=== PATIENT | male | born 1985 | race Caucasian/White ===

== ENCOUNTER → 2018-08-03 08:30 | Outpatient (CLI) | payer BC, SELFPAY ==
--- NOTE | 2018-08-03 08:52 | US_ITS ---
US abdomen complete HISTORY: ITS.REASON: ABD PAIN, WGT LOSS, FATIGUE ORDERING PHYSICIAN: Marissa Bai APRN PATIENT AGE: 33 years COMPARISON: None FINDINGS: PANCREAS:Unremarkable. No obvious mass or abnormal fluid collection. No ductal dilatation LIVER:No focal liver lesions demonstrated. Homogeneous echogenicity. No intrahepatic biliary ductal dilatation evident RIGHT KIDNEY:Unremarkable. Normal size and echogenicity. No hydronephrosis LEFT KIDNEY:Unremarkable. No hydronephrosis. Normal size and echogenicity. GALLBLADDER:No gallstones, gallbladder wall thickening, pericholecystic fluid, or biliary dilatation. There are low level echoes within the gallbladder suggesting sludge or precipitated bile AORTA:No evidence of aneurysmal dilatation. SPLEEN:Unremarkable. Normal size and echogenicity ASCITES:None demonstrated. IMPRESSION: No acute finding. No gallstones apparent. Small amount of sludge/precipitated bile noted in the gallbladder
== END ==
PROVIDERS: PCP Nurse Practitioner; Referring Provider Nurse Practitioner; Visit Provider Nurse Practitioner
DX: R10.84 Generalized abdominal pain (principal); R53.83 Other fatigue; R63.4 Abnormal weight loss
CPT/HCPCS: 76700

== ENCOUNTER → 2018-08-26 10:19 | Outpatient (CLI) | payer BC, SELFPAY ==
--- NOTE | 2018-08-26 10:30 | NM_ITS ---
NM hepatobiliary wo pharm HISTORY: Abdominal pain, weight loss ITS.REASON: RUQ PAIN ORDERING PHYSICIAN: Marissa Bai APRN PATIENT AGE: 33 years COMPARISON: None DOSE: 7.93 mci tc choletec 1.45 mcg cck inj into lt ant. FINDINGS: Homogeneous activity is present within the hepatic parenchyma. Activity is present in the gallbladder by 45 minutes. Activity is present in the small bowel by 30 minutes. The gallbladder ejection fraction is calculated to be 51% The patient did not report pain or other symptoms during CCK infusion. IMPRESSION: Unremarkable hepatobiliary scan and gallbladder ejection fraction. No evidence of common or cystic duct obstruction with normal gallbladder ejection fraction
== END ==
PROVIDERS: PCP Nurse Practitioner; Visit Provider Nurse Practitioner
DX: K82.8 Other specified diseases of gallbladder (principal)
CPT/HCPCS: 78226; A9537; J2805

== ENCOUNTER → 2020-02-23 10:37 | Outpatient (CLI) | payer SELFPAY | PROVIDERS: Visit Provider Nurse Practitioner Family | DX: Z02.4 Encounter for examination for driving license (principal) ==

== ENCOUNTER → 2020-08-24 13:25 | Outpatient (CLI) | payer OTHER, SELFPAY ==
[2020-08-24 13:28] LABS: Microscopic, Urine URINE MICROSCOPIC (MICROSCOPIC)
[2020-08-24 13:51] LABS: Basophils % 0.3 % (0.1-2.0); Eosinophils # 0.2 K/mm3 (0.0-0.4); Eosinophils % 3.6 % (0.1-12.0); Hematocrit 39.6 % (42.0-52.0); Hemoglobin 13.4 g/dL (14.1-18.0); Lymphocytes # 1.8 K/mm3 (0.7-4.5); Lymphocytes % 32.5 % (10-50); Mean Corpuscular HGB Conc 33.9 g/dL (31.8-35.4); Mean Corpuscular Hemoglobin 29.5 pg (27.0-31.2); Mean Corpuscular Volume 87.1 fl (80-94); Mean Platelet Volume 7.5 fl (7.4-10.4); Monocytes # 0.3 K/mm3 (0.1-1.0); Monocytes % 5.3 % (1.7-9.3); Neutrophils # 3.3 K/mm3 (1.8-7.8); Neutrophils % 58.3 % (37.0-80.0); Platelet Count 304 K/mm3 (142-424); Red Blood Count 4.55 M/mm3 (4.60-6.20); Red Cell Distribution Width 13.1 % (11.5-17.5); White Blood Count 5.7 K/mm3 (4.8-10.8)
[2020-08-24 13:59] LABS: Appearance,Urine CLEAR (Clear); Bilirubin,Urine Negative (Negative); Blood, Urine Negative (Negative); Color,Urine YELLOW (Yellow); Glucose,Urine (UA) Negative (Negative); Ketones,Urine TRACE (Negative); Leukocyte Esterase,Urine Negative (Negative); Nitrate,Urine Negative (Negative); PH,Urine 5.5 (5.0-8.5); Protein,Urine Negative (Negative); Specific Gravity, Urine >= 1.030 (1.005-1.030); Urobilinogen,Urine 0.2 EU/dl (0.2)
[2020-08-24 14:16] LABS: Squamous Epithelial Cell,Urine Occasional #/hpf (0-5)
[2020-08-24 14:19] LABS: Anion Gap 9.2 mEq/L (5-15); Blood Urea Nitrogen 19 mg/dl (9-20); Calcium 9.1 mg/dl (8.4-10.2); Carbon Dioxide 28 mmol/L (22.0-30.0); Chloride 106 mmol/L (98-107); Estimated Glomerular Filt Rate 95 ml/min (>60); GFR (African American) 115 ML/MIN (>60); Glucose 122 mg/dl (74-100); Potassium 4.2 mmoL/L (3.5-5.1); Sodium 139 mmol/L (136-145)
== END ==
PROVIDERS: Visit Provider Surgery
DX: Z01.812 Encounter for preprocedural laboratory examination (principal); Z11.52 Encounter for screening for COVID-19; K40.90 Unilateral inguinal hernia, without obstruction or gangrene, not specified as recurrent
CPT/HCPCS: 36415; 80048; 81001; 85025; U0003

== ENCOUNTER 2020-08-25 06:59 | Day surgery (SDC) | payer OTHER, SELFPAY ==
[2020-08-24 10:19] VITALS: BMI 24.0
[2020-08-25] VITALS (11 sets, daily range): BP systolic 116–140; BP diastolic 64–87; PULSE 53–93; RESP 16–60; TEMP 36.2–36.6; O2SAT 98–100
--- NOTE | 2020-08-25 08:25 | P.PN_ITS ---
[facility] Anesthesia Checklist - Patient Identification Patient Identification: Arm Band - Structural Data Admitted From: Home Planned Operative Procedure/s: Open right inguinal hernia repair Consent for Planned Operative Procedure(s) Verified: Yes Verified Documents: Surgical Consent, History and Physical - NPO Status Verified Time NPO: 00:00 - Additional verifications Anesthesia Reactions: No Hx Blood Transfusions: No Blood Transfusion Reaction: No - Airway Assessment C-Spine Mobility Assessed: Yes TMJ Mobility Assessed: Yes Dentition: Good Dentition - Neurological Assessment Level of Consciousness: Awake, Alert - Anesthesia Plan Anesthesia Risk discussed: Yes Anesthesia Plan: Verified ASA Class: II Anesthesia Type: General [facility] History Medical History: Denies:: Cancer, Diabetes Mellitus Type 1, Diabetes Mellitus Type 2, Internal Pacemaker, MRSA, Seizures *Have you ever received a pneumonia vaccine?: No *Have you received a flu vaccine this season?: No Other Medical History: Denies: Blood Transfusion Reaction Anesthesia experience/problems:: NAC Other Surgeries: Yes: No Previous Surgery. No: Pacemaker Amputation: No - *Social History Last grade of school completed: 11th or 12th Smoking Status: Current every day smoker Tobacco Type: cigarettes # Packs/Day (cigarettes): 1 Alcohol Intake: never Substance Use Type: former substance user *Occupational Status:: employed Housing: house Household Members: spouse *Travel in the last 8 weeks: None Family Hx:: No significant family history
--- NOTE | 2020-08-25 10:09 | P.OP_ITS ---
Date of procedure: 08/25/20 Pre-op Diagnosis:: Right inguinal hernia Post-op Diagnosis:: Same Procedure performed:: Open right inguinal hernia repair Surgeon:: Tony Ramesh MD Anesthesia: GETDon Estimated blood loss (mL): 15 Operative findings:: Complex chronic indirect hernia Operative note:: After informed consent was obtained the patient was taken to the operating room and placed in the supine position. General anesthesia was induced and his abdomen/groin/scrotum was prepped and draped in a sterile fashion. After infiltration with local anesthetic an oblique right groin incision was made. The deep subcutaneous tissue was dissected with electrocautery through Laurent's fascia to the level of the external aponeurosis. The external aponeurosis was sharply opened with Metzenbaum scissors to the level of the external ring. The contents of the canal were carefully elevated. Careful dissection was utilized to free the hernia sac from surrounding tissue. Significant scarring (chronic changes) were noted in this region. The hernia sac was freed from surrounding tissue. The distal margin was opened to facilitate dissection. Once dissection was complete the hernia sac was closed with running Vicryl suture. An extra- large PerFix plug was placed within the defect and secured with interrupted Ethibond. The PerFix overlay was then secured to the shelving edge inferiorly and fascial margin superiorly with interrupted Ethibond. The external aponeurosis was reapproximated with interrupted Vicryl. Laurent's fascia was closed in a similar manner. Skin was then reapproximated with running 3-0 Stratafix. Dressings were applied and the patient's anesthetic agents were reversed. He was extubated prior to transfer to recovery. Condition: stable Disposition: PACU Specimens:: None Complications:: No immediate
--- NOTE | 2020-08-25 10:21 | HMH.ANESI ---
[facility] Anesthesia Record Part I Intake, IV Amount: 1,000 Estimated blood loss (mL): 15 Urine output (mL): 500 Blood Pressure: 131/87 SaO2: 98 Pulse Rate: 93 Respiratory Rate: 20 Temperature: 97.1 F Patient is:: Drowsy, Oral/Nasal airway Stable to PACU at:: 10:28
--- NOTE | 2020-08-25 13:17 | HMH.ANESII ---
[facility] Anesthesia Record Part II Discharge Time: 10:47 Destination: Surgical Day Care (OP Surgery) PACU nurse assessment reviewed?: Yes Patient Condition:: Good Anesthesia Complications:: None Swallowing reflex intact?: Yes Cyanosis?: No Blood Pressure: 116/64 Pulse Rate: 60 Temperature: 97.3 F Mental Status: Alert & Oriented Pain level:: 0 Nausea and/or vomitting:: None Intake, IV Amount: 1,000
[2020-08-25 13:45] LABS: Microscopic,Cath URINE MICROSCOPIC (MICROSCOPIC)
[2020-08-25 13:59] LABS: Appearance,Urine/Cath CLEAR (Clear); Bilirubin,Cath Negative (Negative); Blood, Urine/Cath Negative (Negative); Color,Urine/Cath YELLOW (Yellow); Glucose,Urine/Cath (UA) Negative (Negative); Ketones,Urine/Cath Negative (Negative); Leukocyte Esterase,Cath Negative (Negative); Nitrate,Cath Negative (Negative); Protein,Urine/Cath Negative (Negative); Specific Gravity, Urine/Cath >= 1.030 (1.005-1.030); Urobilinogen,Cath 0.2 EU/dl (0.2)
== END 2020-08-25 11:21 | disposition home or self-care (01) ==
LOC: OR 07:01
PROVIDERS: PCP Family Medicine; Visit Provider Surgery
PROC: (CPT 49505; principal; 2020-08-25 08:45)
DX: K40.90 Unilateral inguinal hernia, without obstruction or gangrene, not specified as recurrent (principal); Z72.0 Tobacco use; F19.11 Other psychoactive substance abuse, in remission
CPT/HCPCS: 49505; 81001; 96374; J0131

== ENCOUNTER → 2020-12-28 13:29 | Outpatient (CLI) | payer OTHER, SELFPAY | PROVIDERS: PCP Family Medicine; Visit Provider Nurse Practitioner | DX: Z20.822 Contact with and (suspected) exposure to COVID-19 (principal) | CPT/HCPCS: C9803; U0003; U0005 ==

== ENCOUNTER 2021-04-12 12:14 | Emergency (ER) | payer OTHER, SELFPAY ==
[2021-04-12 12:15] VITALS: BP 141/96; PULSE 74; RESP 18; TEMP 36.7; O2SAT 100; BMI 22.2
--- NOTE | 2021-04-12 12:24 | HMH.EDGENADL ---
ED Disposition Clinical Impression: Laceration of left index finger Qualifiers: Encounter type: initial encounter Damage to nail status: without damage Foreign body presence: without foreign body Qualified Code(s): S61.211A - Laceration without foreign body of left index finger without damage to nail, initial encounter Disposition: Home, Self-Care Condition on Discharge: Good Additional Instructions: Follow up Hand Surgery [phone] Prescriptions: Hydrocod/Acet 5/325 mg [Roberts 5/325mg tablet] 1 tab PO Q4HP PRN 3 Days #12 tab PRN Reason: Moderate Pain Prescription Printed Mupirocin [Bactroban 2% Ointment 22gm tube] 1 applicatio TP TID #22 gm Transmission Status: Pending to [facility] clindamycin HCL [Clindamycin HCl] 300 mg PO Q6 10 Days #40 cap Transmission Status: Pending to [facility] Referrals: Donte Dye MD [Primary Care Provider] - - Critical Care Critical Care Time: No Attestation: On 04/12/21, the high probability of a clinically significant, sudden or life threatening deterioration of the following system(s) required my full and direct attention, intervention and personal management. The time I documented below is in addition to time spent performing reported procedures but includes the following listed in this critical care notation. Medical Decision Making - Gregorio Inquiry Pt receiving controlled substance: Yes Gregorio was queried for this patient: No Risks and benefits of using a controlled substance: were discussed with pt by me Vital Signs: 04/12/21 12:15 Temperature 98.0 F Temperature Source Oral Pulse Rate [Right Radial] 74 Respiratory Rate 18 Blood Pressure [Right Arm] 141/96 H Blood Pressure Mean [Right Arm] 111 Blood Pressure Source [Right Arm] Automatic Cuff Blood Pressure Position [Right Arm] Sitting 02 Sat by Pulse Oximetry 100 Oxygen Delivery Method Room Air Orders (Tests/Meds): ED MEDICATIONS Discontinued Medications Generic Name Dose Route Start Last Admin Trade Name Freq PRN Reason Stop Dose Admin Tetanus/Reduced Diphtheria/Acell Pertussis 0.5 ml 04/12/21 12:59 Tet/Diphth/Pert-Adult 0.5ml Syringe IM 04/12/21 13:00 .ONCE ONE General Adult HPI - General Stated complaint: AO [id number] left middle and index finger cut Time Seen by Provider: 04/12/21 12:24 Source of Information: Patient Limitations: No Limitations - History of Present Illness HPI narrative: 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, pain mild, constant, non rad Onset (ago): minute(s) Severity: moderate Relieving factors: immobilization Exacerbating factors: movement Associated symptoms: denies other symptoms Treatments prior to arrival: none - Related Data Home Medications Medication Instructions Recorded Confirmed Buprenorphine HCl/Naloxone HCl 1 each SL DAILY 08/24/20 08/25/20 [Suboxone 12 mg-3 mg Sl Film] Previous Rx's Medication Instructions Recorded Hydrocod/Acet 5/325 mg [Roberts 1 tab PO Q4HP PRN 3 Days #12 tab 04/12/21 5/325mg tablet] Mupirocin [Bactroban 2% Ointment 1 applicatio TP TID #22 gm 04/12/21 22gm tube] clindamycin HCL [Clindamycin HCl] 300 mg PO Q6 10 Days #40 cap 04/12/21 Allergies Allergy/AdvReac Type Severity Reaction Status Date / Time No Known Allergies Allergy Verified 08/22/20 10:38 [facility] History - Hepatitis A Screen Attestation statement:: This patient has been screened for Hepatitis A risk factors. Medical History: Denies:: Cancer, Diabetes Mellitus Type 1, Diabetes Mellitus Type 2, Internal Pacemaker, MRSA, Seizures Other Medical History: Denies: Blood Transfusion Reaction Other Surgeries: Yes: No Previous Surgery. No: Pacemaker Amputation: No - Social History Smoking Status: Current every day smoker Tobacco Type: cigarettes # Packs/Day (cigarettes): 1 Alcohol Intake: never Substance Use Type: former substance user Occupational Status: employed [employer]
--- NOTE | 2021-04-12 12:27 | PC.NURSE ---
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 Harry who is ortho health information specialist, states she had to leave a message for him
--- NOTE | 2021-04-12 12:32 | PC.NURSE ---
pt L hand soaking in hibiclens and sterile water at this time
[2021-04-12 14:25] VITALS: BP 141/95; PULSE 75; RESP 20; TEMP 36.7; O2SAT 99
== END 2021-04-12 15:42 | disposition home or self-care (01) ==
PROVIDERS: Emergency Provider Emergency Medicine; PCP Family Medicine
DX: S61.211A Laceration without foreign body of left index finger without damage to nail, initial encounter (principal); S61.213A Laceration without foreign body of left middle finger without damage to nail, initial encounter; Z23 Encounter for immunization; F17.210 Nicotine dependence, cigarettes, uncomplicated; W31.2XXA Contact with powered woodworking and forming machines, initial encounter; Y92.89 Other specified places as the place of occurrence of the external cause
CPT/HCPCS: 12002; 99282

== ENCOUNTER 2021-09-29 18:58 | Emergency (ER) | payer OTHER, SELFPAY ==
[2021-09-29 19:10] VITALS: BP 163/95; PULSE 69; RESP 17; TEMP 36.8; O2SAT 98; BMI 24.5
--- NOTE | 2021-09-29 19:25 | HMH.EDUTC ---
[facility] Disposition Clinical Impression: Dental abscess, Pain, dental Disposition: Home, Self-Care Condition on Discharge: Good Instructions: Tooth Abscess, DI for Tooth Abscess, DI for Dental Pain Additional Instructions: Drink plenty of fluids. Take ibuprofen for pain. I sent in a prescription for ibuprofen 800 mg to your pharmacy. Take all of the antibiotics, even when your tooth starts to feel better. Make sure you finish them. Follow up with your regular doctor for any issues. You have to see a dentist. Try to call around and get an appointment for when you will be finishing the antibiotics. GO TO THE ER FOR ANY WORSENING SYMPTOMS Prescriptions: Ibuprofen [Ibuprofen 800mg Tablet] 800 mg PO Q8HP PRN #30 tab PRN Reason: Moderate Pain Transmission Status: Received by [facility] Amoxicillin/Potassium Clav [Amox-Clav 875-125 mg Tablet] 1 tab PO BID #20 tab Transmission Status: Received by [facility] Referrals: Don Orellana MD [Primary Care Provider] - Time of Disposition: 19:59 Medical Decision Making - Medical Records Medical records reviewed: No: I reviewed the patient's medical records. - Gregorio Inquiry Pt receiving controlled substance: No Vital Signs: 09/29/21 19:10 09/29/21 20:02 Temperature 98.2 F 98.4 F Temperature Source Oral Oral Pulse Rate 69 Pulse Rate [Left] 69 Respiratory Rate 17 16 Blood Pressure 163/95 H Blood Pressure [Right Arm] 163/95 H Blood Pressure Mean [Right Arm] 117 02 Sat by Pulse Oximetry 98 Orders (Tests/Meds): ED MEDICATIONS Discontinued Medications Generic Name Dose Route Start Last Admin Trade Name Freq PRN Reason Stop Dose Admin Ceftriaxone Sodium 1 gm 09/29/21 20:00 09/29/21 20:01 Ceftriaxone 1gm Vial IM 09/29/21 20:01 1 gm ONCE ONE Administration Ketorolac Tromethamine 60 mg 09/29/21 20:00 09/29/21 20:02 Ketorolac 60mg/2ml Vial IM 09/29/21 20:01 60 mg ONCE ONE Administration Lidocaine HCl 0 ml 09/29/21 20:00 09/29/21 20:01 Lidocaine 1% 5ml Pf Vial IM 09/29/21 20:01 2 ml ONCE ONE Administration [facility] [place] HPI - General Stated complaint: face pain Time Seen by Provider: 09/29/21 19:25 Description of Symptoms (Recalled from Triage Doc. by RN): patient comes in for facial pain. patient states that he does have a bad tooth, but his gums hurt and it radiating into his head HEENT Symptoms (Recalled from RN notes): Yes Resp Symptoms (Recalled from RN notes): No Skin Symptoms (Recalled from RN notes): No MS Symptoms (Recalled from RN notes): No Functional Status (Recalled from RN notes): wnl - History of Present Illness Provider Complaint: He states that he has dental pain and swelilng of his gum in his right upper jaw. - Related Data Home Medications Medication Instructions Recorded Confirmed Buprenorphine HCl/Naloxone HCl 1 each SL DAILY 08/24/20 08/25/20 [Suboxone 12 mg-3 mg Sl Film] Previous Rx's Medication Instructions Recorded Hydrocod/Acet 5/325 mg [Home 1 tab PO Q4HP PRN 3 Days #12 tab 04/12/21 5/325mg tablet] Mupirocin [Bactroban 2% Ointment 1 applicatio TP TID #22 gm 04/12/21 22gm tube] clindamycin HCL [Clindamycin HCl] 300 mg PO Q6 10 Days #40 cap 04/12/21 Amoxicillin/Potassium Clav 1 tab PO BID #20 tab 09/29/21 [Amox-Clav 875-125 mg Tablet] Ibuprofen [Ibuprofen 800mg 800 mg PO Q8HP PRN #30 tab 09/29/21 Tablet] Allergies Allergy/AdvReac Type Severity Reaction Status Date / Time No Known Allergies Allergy Verified 09/29/21 19:22 - Worker's Comp Is this a Worker's Comp case?: No [facility] History - Hepatitis A Screen Attestation statement:: This patient has been screened for Hepatitis A risk factors. I have reviewed the patient's past medical history: Yes Medical History: Denies:: Cancer, Diabetes Mellitus Type 1, Diabetes Mellitus Type 2, Internal Pacemaker, MRSA, Seizures Other Medical History: Denies: Bl
[2021-09-29 20:02] VITALS: BP 163/95; PULSE 69; RESP 16; TEMP 36.9
== END 2021-09-29 20:09 | disposition home or self-care (01) ==
PROVIDERS: Emergency Provider Nurse Practitioner Family; PCP Family Medicine
DX: K04.7 Periapical abscess without sinus (principal)
CPT/HCPCS: 96372; 99212; G0463; J0696

== ENCOUNTER 2022-01-13 12:31 | Emergency (ER) | payer OTHER, SELFPAY ==
[2022-01-13] VITALS (9 sets, daily range): BP systolic 124–165; BP diastolic 75–110; PULSE 50–84; RESP 14–18; TEMP 36.7–37.1; O2SAT 96–100; BMI 24.0
--- NOTE | 2022-01-13 12:28 | ECG_ITS ---
APPROVED REPORT Exam: Resting ECG HR:62 bpm ECG Measurements Heart Rate 62 AXES OK 158 P 72 QRSd 103 QRS 91 QT 415 T 78 QTc 420 Conclusion SINUS RHYTHM BORDERLINE RIGHT AXIS DEVIATION [QRS AXIS > 90] BORDERLINE ECG INTERPRETATION BASED ON A DEFAULT AGE OF 38 YEARS UNCONFIRMED REPORT Electronically signed by : Donte Mueller MD 01/14/2022 21:24:43
--- NOTE | 2022-01-13 12:36 | XR_ITS ---
PROCEDURE INFORMATION: Exam: XR Chest Exam date and time: 01/13/2022 2:02 PM Age: 36 years old Clinical indication: Pain; Chest pressure; Additional info: Chest pain TECHNIQUE: Imaging protocol: Radiologic exam of the chest. Views: 1 view. COMPARISON: CR CXR CHEST(2 VIEWS-NOT PORTABLE) 03/28/2015 12:49 PM FINDINGS: Lungs: Unremarkable. No consolidation. Pleural spaces: Unremarkable. No pleural effusion. No pneumothorax. Heart/Mediastinum: Unremarkable. No cardiomegaly. Bones/joints: Unremarkable. IMPRESSION: No acute findings.
--- NOTE | 2022-01-13 12:39 | HMH.EDGENADL ---
Discharge Plan Disposition Patient Disposition: Home, Self-Care Condition: Good Prescriptions Prescriptions: No Action buprenorphine-naloxone 1 EACH film 1 each SL DAILY clindamycin HCl 300 MG capsule 300 mg PO Q6 10 Days Qty: 40 0RF mupirocin 22 GM ointment 1 applicatio TP TID Qty: 22 0RF hydrocodone-acetaminophen 1 TAB tablet 1 tab PO Q4HP PRN (Reason: Moderate Pain) 3 Days Qty: 12 0RF ibuprofen 800 MG tablet 800 mg PO Q8HP PRN (Reason: Moderate Pain) Qty: 30 0RF amoxicillin-pot clavulanate 1 EACH tablet 1 tab PO BID Qty: 20 0RF Referrals Follow up/Referrals: Provider,Referral, [Primary Care Provider] - See instructions Activity Restrictions/Add. Instructions Additional Instructions/Restrictions: You were evaluated in the emergency department today for chest pain, lightheadedness, and other complaints. At this time, we feel that your symptoms are likely due to dehydration from a viral illness. Please make sure that she orally hydrated at home is much as possible. Take Tylenol and ibuprofen at home as needed for symptoms. Follow-up with your primary care provider over the next 48 hours. Return to the emergency department for any new or worsening symptoms. Clinical Impressions Clinical Impression: Atypical chest pain, Acute viral syndrome, Lightheadedness Instructions Patient Instructions: DI for Atypical Chest Pain, DI for Viral Syndrome, DI for Dizziness-Nonvertigo Discharge ED Provider: Kathy Mccollum General Adult HPI General Chief complaint: Chest Pain Stated complaint: chest pain Time Seen by Provider: 01/13/22 12:38 History of Present Illness HPI narrative: This patient is a 36-year-old male with no significant past medical history presenting to the emergency department for evaluation of chest pain, cough, congestion, lightheadedness, nausea, vomiting, and diarrhea that is been present for 3 days. He states that he feels like he is going to pass out when he stands up too quickly. He complains of sharp chest pain across the front of his chest. It does not radiate. He has had no back pain, numbness, tingling, true dizziness, unilateral weakness, or other concerns. Though he has had nonbloody nonbilious emesis and watery diarrhea, he has had no abdominal pain. He states that he tried resting at home but does not seem to be getting any better. Nothing seems to make his symptoms better or worse. He has no history of cardiac issues, blood clots, clotting disorders, or other concerns. His biggest concerns today are of the lightheadedness and chest pain. Related Data Home Medications Medication Instructions Recorded Confirmed buprenorphine 12 mg-naloxone 3 mg 1 each SL DAILY drug addiciton 08/24/20 08/25/20 sublingual film Previous Rx's Medication Instructions Recorded clindamycin HCl 300 mg capsule 300 mg PO Q6 10 days #40 caps 04/12/21 hydrocodone 5 mg-acetaminophen 325 1 tab PO Q4HP PRN Moderate Pain 3 04/12/21 mg tablet days #12 tabs mupirocin 2 % topical ointment 1 applicatio TP TID ##22 04/12/21 amoxicillin 875 mg-potassium 1 tab PO BID #20 tabs 09/29/21 clavulanate 125 mg tablet ibuprofen 800 mg tablet 800 mg PO Q8HP PRN Moderate Pain 09/29/21 #30 tabs Allergies Allergy/AdvReac Type Severity Reaction Status Date / Time No Known Allergies Allergy Verified 09/29/21 19:22 PFSH PFS Social History Smoking Status: Never smoker alcohol intake: never substance use type: former substance user current occupational status: employed Travel in the last 8 weeks: None household members: spouse housing: house 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 Physical Exam General General appearance: al
[2022-01-13 12:48] LABS: Basophils # 0.1 K/mm3 (0-0.2); Basophils % 1.5 % (0.1-2.0); Eosinophils # 0.3 K/mm3 (0.0-0.4); Eosinophils % 4.2 % (0.1-12.0); Hematocrit 50.2 % (42.0-52.0); Hemoglobin 15.5 g/dL (14.1-18.0); Lymphocytes # 1.7 K/mm3 (0.7-4.5); Lymphocytes % 26.5 % (10-50); Mean Corpuscular HGB Conc 30.9 g/dL (31.8-35.4); Mean Corpuscular Hemoglobin 28.5 pg (27.0-31.2); Mean Corpuscular Volume 92.4 fl (80-94); Monocytes # 0.3 K/mm3 (0.1-1.0); Monocytes % 4.5 % (1.7-9.3); Neutrophils % 63.3 % (37.0-80.0); Platelet Count 331 K/mm3 (142-424); Red Blood Count 5.43 M/mm3 (4.60-6.20); Red Cell Distribution Width 13.3 % (11.5-17.5); White Blood Count 6.4 K/mm3 (4.8-10.8)
[2022-01-13 12:49] LABS: Chloride 101 mmol/L (98-107)
[2022-01-13 12:50] LABS: Potassium 4.5 mmoL/L (3.5-5.1); Sodium 142 mmol/L (136-145)
[2022-01-13 12:52] LABS: Blood Urea Nitrogen 17 mg/dl (9-20); Creatinine Clearance Estimated 135 mL/min (50-200); Estimated Glomerular Filt Rate 108 ml/min (>60); GFR (African American) 131 ML/MIN (>60)
[2022-01-13 12:53] LABS: Anion Gap 14.5 mEq/L (5-15); Calcium 9.6 mg/dl (8.4-10.2); Carbon Dioxide 31 mmol/L (22.0-30.0); Glucose 97 mg/dl (74-100)
[2022-01-13 12:56] LABS: Alanine Aminotransferase 25 U/L (12-78); Alkaline Phosphatase 91 U/L (38-126); Aspartate Amino Transferase 36 U/L (17-59); Bilirubin,Indirect 0.5 mg/dL (0.0-0.9); Bilirubin,Total 0.5 mg/dl (0.2-1.3); Bilirubin,Unconjugated 0.5 mg/dL (0.0-1.1); Magnesium 2.1 mg/dl (1.6-2.3); Total Protein,Serum 8.6 g/dl (6.3-8.2)
[2022-01-13 13:06] LABS: Troponin I < 0.01 ng/ml (0.00-0.034)
[2022-01-13 13:36] LABS: Coronavirus 19, PCR Not Detected (NotDetected); Influenza A, PCR Not Detected (NotDetected); Influenza B, PCR Not Detected (NotDetected)
== END 2022-01-13 15:30 | disposition home or self-care (01) ==
PROVIDERS: Emergency Provider Emergency Medicine
DX: R07.89 Other chest pain (principal); B34.9 Viral infection, unspecified; R42 Dizziness and giddiness; R11.2 Nausea with vomiting, unspecified; R00.1 Bradycardia, unspecified; Z79.1 Long term (current) use of non-steroidal anti-inflammatories (NSAID); Z79.899 Other long term (current) drug therapy; Z20.822 Contact with and (suspected) exposure to COVID-19
CPT/HCPCS: 71045; 80048; 80076; 83735; 84484; 85025; 93005; 96374; 99284; C9803; J2405; U0003; U0005

== ENCOUNTER 2024-03-25 10:32 | Emergency (ER) | payer OTHER, SELFPAY ==
[2024-03-25 10:33] VITALS: BP 162/76; PULSE 110; RESP 0; TEMP 37.6; O2SAT 96; BMI 25.1
[2024-03-25 10:52] LABS: Coronavirus 19, PCR Not Detected (NotDetected); Influenza B, PCR Not Detected (NotDetected)
--- NOTE | 2024-03-25 11:03 | PC.NURSE ---
Pt. has no needs at this time. Call light in reach
[2024-03-25] MEDS: DEXAMETHASONE 4MG TABLET 10 MG PO (11:36)
--- NOTE | 2024-03-25 11:44 | HMH.EDGENADL ---
Discharge Plan Disposition Patient Disposition: Home, Self-Care Chief Complaint: Upper Respiratory Infection Prescriptions Prescriptions: No Action buprenorphine-naloxone 1 EACH film 1 each SL DAILY clindamycin HCl 300 MG capsule 300 mg PO Q6 10 Days Qty: 40 0RF mupirocin 22 GM ointment 1 applicatio TP TID Qty: 22 0RF hydrocodone-acetaminophen 1 TAB tablet 1 tab PO Q4HP PRN (Reason: Moderate Pain) 3 Days Qty: 12 0RF ibuprofen 800 MG tablet 800 mg PO Q8HP PRN (Reason: Moderate Pain) Qty: 30 0RF amoxicillin-pot clavulanate 1 EACH tablet 1 tab PO BID Qty: 20 0RF Referrals Follow up/Referrals: Provider,Referral, MD [Primary Care Provider] - See instructions Activity Restrictions/Add. Instructions Additional Instructions/Restrictions: Call your family doctor to establish care for this visit to the emergency department and schedule follow-up within 48 hours to ensure improvement. If you have any worsening of your condition or any other concerning signs or symptoms, return to the emergency department or your primary care doctor for further evaluation. Clinical Impressions Clinical Impression: Influenza A Print Language Print Language: Haitian Discharge ED Provider: Ishan Hand General Adult HPI General Chief complaint: Upper Respiratory Infection Stated complaint: congestion soa cough chills Time Seen by Provider: 03/25/24 10:56 Mode of Arrival: Ambulatory Source of Information: Patient Limitations: No Limitations Description of Symptoms (Recalled from ER Triage Doc. by RN): pt has flu like s/s the last three days History of Present Illness HPI narrative: Please note that above description of symptoms, in this electronic medical record under categorization of recalled from ER triage doctor by RN are reflective of an initial nursing assessment, however, is not reflective of my full history and physical exam that was personally taken and clarified. Consequentially, this preceding description of symptoms, which may include the patient's categorized chief complaint in the EMR, do not reflect my personal clinical impression, and the ultimate description of history of present illness and patient stated complaints should be deferred to this section of the note. Unless stated otherwise or congruent with this section of the note, additional signs, symptoms, or incongruence should be interpreted as inaccurate with my clinical impression. Related Data Home Medications ?Medication ?Instructions ?Recorded ?Confirmed buprenorphine 12 mg-naloxone 3 mg 1 each SL DAILY drug addiciton 08/24/20 08/25/20 sublingual film Previous Rx's ?Medication ?Instructions ?Recorded clindamycin HCl 300 mg capsule 300 mg PO Q6 10 days #40 caps 04/12/21 hydrocodone 5 mg-acetaminophen 325 1 tab PO Q4HP PRN Moderate Pain 3 04/12/21 mg tablet days #12 tabs mupirocin 2 % topical ointment 1 applicatio TP TID ##22 04/12/21 amoxicillin 875 mg-potassium 1 tab PO BID #20 tabs 09/29/21 clavulanate 125 mg tablet ibuprofen 800 mg tablet 800 mg PO Q8HP PRN Moderate Pain 09/29/21 #30 tabs Allergies Allergy/AdvReac Type Severity Reaction Status Date / Time No Known Allergies Allergy Verified 09/29/21 19:22 [facility] Disclaimer: The information contained in this section may have been updated after the patient was seen, as this information can be updated by other users. Social History Smoking Status: Never smoker alcohol intake: never substance use type: former substance user current occupational status: employed Travel in the last 8 weeks: None household members: spouse housing: house current occupation: [employer] caffeine: Yes Have you lived/traveled outside [place] in past 30 days?: No Contact w/someone who lives/traveled outside US past 30 days?: No Exposure to someone with infectious disease in past 14 days?: No Do you have a fever (greater than 100.4 F or 38 C)?: No Have you tested positive for COVID-19: No Exposed to someone with COVID-19 in past 14 days?: No Do you have a sore throat?: No Do you have a cough?: Yes Do you have any weakness?: No Do you have any diarrhea?: No Are you experiencing any unusual bleeding?: No Do you have any muscle aches/pain?: Yes Do you have any abdominal pain?: No Are you experiencing loss of taste or smell?: No Other Medical History Have you received the Flu Vaccine for this season: No Have you received the Pneumonia Vaccine: No ROS Obtained: Yes All systems reviewed & no additional complaints except as documented Physical Exam General General appearance: alert Head Head exam: atraumatic and normocephalic Eye Eye exam: Present normal appearance, PERRL and EOMI Neck Neck exam: Present normal inspection, full ROM and trachea midline Respiratory Respiratory exam: Absent respiratory distress, wheezes, stridor, accessory muscle use or prolonged expiratory phase Cardiovascular Cardiovascular exam: Present other (Pulses equal symmetric in upper and lower extremities) Abdominal Exam Abdominal exam: Present soft; Absent distention, tenderness or pulsatile mass Extremities Exam Extremities exam: Absent edema Neurological Exam Neurological exam: Present alert, oriented X3 and CN II-XII intact; Absent motor sensory deficit Skin Skin exam: Present warm and dry; Absent diaphoresis or erythema Medical Decision Making Medical Records Medical records reviewed: Yes I reviewed the patient's medical records. Screening: Per USPSTF and CDC recommendations, given the prevalence of disease in our region, it is our hospital?s policy to screen for HIV and viral Hepatitis for all patients aged 18 and over and those with ongoing risk factors. Gregorio Inquiry Pt receiving controlled substance: No Gregorio was queried for this patient: No Vital Signs: 03/25/24 10:33 Temperature 99.6 F Temperature Source Oral Pulse Rate [Right Radial] 110 H Respiratory Rate 0 L Blood Pressure [Right Arm] 162/76 H Blood Pressure Mean [Right Arm] 104 02 Sat by Pulse Oximetry 96 Oxygen Delivery Method Room Air Lab Data Lab Results 03/25/24 10:40: SARS-CoV-2 (PCR) Not detected, Influenza A Untype (PCR) Detected A, Influenza Type B (PCR) Not detected Orders (Tests/Meds): ED MEDICATIONS Discontinued Medications Generic Name Dose Route Start Last Admin Trade Name Freq PRN Reason Stop Dose Admin Dexamethasone 10 mg 03/25/24 11:31 03/25/24 11:36 Dexamethasone 4mg Tablet PO 03/25/24 11:32 10 mg ONCE ONE Administration ORDERS Category Date Time Status Rapid PCR Covid and Flu A/B Stat Lab 03/25/24 10:40 Completed Medical Decision Narrative: 38-year-old male no relevant medical history other than current tobacco use disorder presenting with viral symptoms. Having going on for 3 to 4 days at this point. Cough nonproductive. Now having intermittent posttussive emesis. No chest pain, shortness of breath, nausea or vomiting in the absence of cough. Started having fevers as well. Came in for further evaluation. History obtained the patient. On arrival, he is very well-appearing and has no signs of clinical deterioration. Speaking in full sentences, energetic. Lungs are clear, cardiac exam normal. Differential includes influenza, other viral syndrome, among others. Patient was given 10 mg Decadron p.o. Independent interpretation of workup with flu positive swab. Because patient at baseline without signs or symptoms of clinical decompensation, deemed appropriate for discharge. Results were relayed to patient who voiced understanding and were agreeable to outpatient management and follow up. I discussed my clinical impression with patient and answered all questions. At this time, the evidence for any other entities in the differential is insufficient to warrant any further testing or ED observation. This was explained as well. Advisory was given that persistent or worsening symptoms require further evaluation. I confirmed the understanding of this discussion. Customs And Border Protection Inspector disclaimer Much of this encounter note is an electronic cargo handler spoken language to printed text. Electronic cargo handler of the spoken language may permit errors. Although I have reviewed the note, some errors may still exist. Critical Care Critical Care Time Critical Care Time: No
[2024-03-25 12:03] LABS: Influenza A, PCR Detected (NotDetected)
[2024-03-25 12:15] VITALS: BP 135/81; PULSE 94; RESP 18; TEMP 37.5; O2SAT 98
== END 2024-03-25 12:15 | disposition home or self-care (01) ==
PROVIDERS: Emergency Provider Emergency Medicine
DX: R05.9 Cough, unspecified (principal); R06.02 Shortness of breath; J10.1 Influenza due to other identified influenza virus with other respiratory manifestations; R09.81 Nasal congestion; R68.83 Chills (without fever)
CPT/HCPCS: 87636; 99283; J8540

== ENCOUNTER 2024-03-28 14:01 | Emergency (ER) | payer SELFPAY ==
[2024-03-28 14:38] VITALS: BP 139/97; PULSE 75; RESP 18; TEMP 37.1; O2SAT 99; BMI 25.1
[2024-03-28 14:45] VITALS: BP 153/90; PULSE 70; O2SAT 98
--- NOTE | 2024-03-28 15:30 | XR_ITS ---
PROCEDURE INFORMATION: Exam: XR Chest Exam date and time: 03/28/2024 3:32 PM Age: 38 years old Clinical indication: Cough; Additional info: Cough flu TECHNIQUE: Imaging protocol: Radiologic exam of the chest. Views: 2 views. COMPARISON: CR XR CHEST PORTABLE 01/13/2022 2:02 PM FINDINGS: Lungs: Faint airspace opacities are seen in the right perihilar region. Pleural spaces: Unremarkable. No pleural effusion. No pneumothorax. Heart/Mediastinum: Unremarkable. No cardiomegaly. Bones/joints: Unremarkable. IMPRESSION: Faint right perihilar pneumonia.
[2024-03-28 15:45] VITALS: BP 118/74; PULSE 74; RESP 18; TEMP 37.2; O2SAT 100
[2024-03-28 16:45] VITALS: BP 121/74; PULSE 68; RESP 16; TEMP 37.2; O2SAT 98
--- NOTE | 2024-03-28 20:23 | ED_ITS ---
<Statement entered by Abraham Campos MD - 03/29/24 15:27> I was consulted by the JUN, and we discussed the complexity of the problems being addressed. I approved the treatment and management plan for this patient's care in the emergency department, thus performing a substantive portion of the medical decision making. Abraham Campos MD, JO ANN, FACEP Discharge Plan Disposition Patient Disposition: Home, Self-Care Condition: Good Prescriptions Prescriptions: New amoxicillin-pot clavulanate 875-125 mg tablet 1 tab PO Q12H Qty: 20 0RF albuterol sulfate [Ventolin HFA] 90 mcg/actuation HFA aerosol inhaler 2 inh inhalation Q6H PRN (Reason: shortness of breath or wheezing) Qty: 6.7 0RF liumvrugyrswvcg-olanenrdx-JY [Bromfed DM] 2-30-10 mg/5 mL syrup 5 ml PO Q6H PRN (Reason: cold symptoms) Qty: 100 0RF Referrals Follow up/Referrals: Den Smith DO [Staff Physician] - See instructions Provider,ReferralMD [Primary Care Provider] - See instructions Activity Restrictions/Add. Instructions Additional Instructions/Restrictions: You were seen for pneumonia. Please complete your antibiotics and follow up with your PCP. Return to the ER for worsening symptoms. Clinical Impressions Clinical Impression: Pneumonia Instructions Patient Instructions: Pneumonia--Adult Print Language Print Language: Tajik Discharge ED Provider: Abraham Campos General Adult HPI General Chief complaint: Upper Respiratory Infection Stated complaint: sever congestion pain in face Time Seen by Provider: 03/28/24 14:30 Mode of Arrival: Ambulatory Source of Information: Patient Limitations: No Limitations Description of Symptoms (Recalled from ER Triage Doc. by RN): Pt. presents to the ED with complaints of sinus pressure and congestion x 3 days. He tested positive for Flu A on 03/25. History of Present Illness HPI narrative: Patient presents complaining of sinus pain and pressure. He reports he has productive cough with brown/yellow sputum. He reports that he was diagnosed with influenza several days ago. He denies any fever. He has been taking DayQuil. complaint: Sinus pressure Onset (ago): day(s) Location: face Radiation: non-radiation Severity: moderate Consistency: constant Relieving factors: none Exacerbating factors: none Associated symptoms: negative fever/chills Treatments prior to arrival: none Related Data Previous Rx's ?Medication ?Instructions ?Recorded albuterol sulfate 90 mcg/actuation 2 inh inhalation Q6H PRN shortness 03/28/24 aerosol inhaler (Ventolin HFA) of breath or wheezing #6.7 grams amoxicillin 875 mg-potassium 1 tab PO Q12H #20 tabs 03/28/24 clavulanate 125 mg tablet ilvtatfeoygtabp-lzurjqebrhjeutq-HO 5 ml PO Q6H PRN cold symptoms #100 03/28/24 2 mg-30 mg-10 mg/5 mL oral syrup mL (Bromfed DM) Allergies Allergy/AdvReac Type Severity Reaction Status Date / Time No Known Allergies Allergy Verified 03/28/24 14:37 [facility] Disclaimer: The information contained in this section may have been updated after the patient was seen, as this information can be updated by other users. Social History Smoking Status: Current every day smoker tobacco type: cigarettes packs per day: 1 alcohol intake: never substance use type: former substance user current occupational status: employed Travel in the last 8 weeks: None household members: spouse housing: house current occupation: [employer] caffeine: Yes Have you lived/traveled outside [place] in past 30 days?: No Contact w/someone who lives/traveled outside [place] past 30 days?: No Exposure to someone with infectious disease in past 14 days?: No Do you have a fever (greater than 100.4 F or 38 C)?: No Have you tested positive for COVID-19: No Exposed to someone with COVID-19 in past 14 days?: No Do you have a sore throat?: No Do you have a cough?: No Do you have any weakness?: No Do you have any diarrhea?: No Are you experiencing any unusual bleeding?: No Do you have any muscle aches/pain?: No Do you have any abdominal pain?: No Are you experiencing loss of taste or smell?: No Other Medical History Have you received the Flu Vaccine for this season: No Have you received the Pneumonia Vaccine: No ROS Obtained: Yes Systems reviewed as appropriate & no additional complaints except as documented Physical Exam General General appearance: alert and in no apparent distress Head Head exam: atraumatic and normocephalic Eye Eye exam: Present normal appearance and EOMI ENT ENT exam: Present normal exam, normal oropharynx, mucous membranes moist, TM's normal bilaterally and normal external ear exam Chest Chest inspection: Present symmetric chest wall rise Respiratory Respiratory exam: Present normal lung sounds bilaterally and wheezes (slight LLL); Absent stridor Cardiovascular Cardiovascular exam: Present regular rate and normal rhythm; Absent systolic murmur Extremities Exam Extremities exam: Present full ROM Neurological Exam Neurological exam: Present alert and oriented X3 Psychiatric Psychiatric exam: Present normal affect and normal mood Skin Skin exam: Present warm, dry and intact Medical Decision Making Medical Records Screening: Per USPSTF and CDC recommendations, given the prevalence of disease in our region, it is our hospital?s policy to screen for HIV and viral Hepatitis for all patients aged 18 and over and those with ongoing risk factors. Gregorio Inquiry Pt receiving controlled substance: No Vital Signs: 03/28/24 14:38 03/28/24 14:45 03/28/24 15:45 Temperature 98.8 F 98.9 F Temperature Source Oral Oral Pulse Rate 70 74 Pulse Rate [Left Brachial] 75 Respiratory Rate 18 18 Blood Pressure 153/90 H 118/74 Blood Pressure [Left Arm] 139/97 H Blood Pressure Mean [Left Arm] 111 Blood Pressure Source Automatic Cuff Blood Pressure Source [Left Arm] Automatic Cuff Blood Pressure Position Sitting Blood Pressure Position [Left Arm] Sitting 02 Sat by Pulse Oximetry 99 98 100 Oxygen Delivery Method Room Air Room Air Room Air 03/28/24 16:45 Temperature 98.9 F Temperature Source Oral Pulse Rate 68 Pulse Rate [Left Brachial] Respiratory Rate 16 Blood Pressure 121/74 Blood Pressure [Left Arm] Blood Pressure Mean [Left Arm] Blood Pressure Source Automatic Cuff Blood Pressure Source [Left Arm] Blood Pressure Position Sitting Blood Pressure Position [Left Arm] 02 Sat by Pulse Oximetry Oxygen Delivery Method Room Air Orders (Tests/Meds): ORDERS Category Date Time Status Chest XR 2 view (NOT portable) [XR chest 2V] Stat Exams 03/28/24 15:30 Completed Medical Decision Narrative: In summary patient is a 38-year-old who presents the emergency department for evaluation of sinus pressure, cough. Patient is hemodynamically upon arrival, afebrile. Slight wheezing on exam. Differential diagnosis includes pneumonia, bronchitis, sinus. Initial workup will be conducted with chest x-ray. Initial workup reviewed by me faint pneumonia. Given this patient is appropriate for discharge with antibiotics, Ventolin and Bromfed for cough. Follow-up with PCP this week. Critical Care Critical Care Time Critical Care Time: No
== END 2024-03-28 17:00 | disposition home or self-care (01) ==
PROVIDERS: Emergency Provider Student in an Organized Health Care Education/Training Program
DX: J18.9 Pneumonia, unspecified organism (principal); R05.9 Cough, unspecified; J34.89 Other specified disorders of nose and nasal sinuses
CPT/HCPCS: 71046; 99283